=== PATIENT | male | born 2000 | race Asian ===

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

== ENCOUNTER 2019-04-24 14:06 | Emergency (ER) | payer BC ==
[~2019-04-24] VITALS: Ht 167.6 cm; Wt 81.8 kg
[~2019-04-24 14:06] MED LIST changes: +OMEP20 PO
[2019-04-24 14:09] VITALS: BP 147/81
[2019-04-24] MEDS ORDERED: ALBUTEROL SULFATE HFA 90 MCG/PUFF 8 GM INHALER IH ONE (16:06)
== END 2019-04-24 16:43 | disposition home or self-care (01) ==
LOC: EMS 14:08
DX: J45.909 Unspecified asthma, uncomplicated (principal); K21.9 Gastro-esophageal reflux disease without esophagitis
CPT/HCPCS: J3535

== ENCOUNTER 2019-05-20 02:53 | Emergency (ER) | payer BC ==
[~2019-05-20] VITALS: Ht 167.6 cm; Wt 81.8 kg
[~2019-05-20 02:53] MED LIST changes: -OMEP20 PO
[2019-05-20] MEDS ORDERED: LORA10TA7 PO (03:05)
[2019-05-20] MEDS ORDERED: SODIUM CHLORIDE 0.9% 1,000 ML IV ONE (03:15)
[2019-05-20] MEDS ORDERED: ALBUTEROL SULFATE HFA 90 MCG/PUFF 8 GM INHALER IH ONE (03:15)
[2019-05-20] MEDS ORDERED: MethylPREDNISolone SOD SUCC 125 MG/2 ML VIAL IVP ONE (03:15)
[2019-05-20] MEDS ORDERED: MAGNESIUM SULFATE 2 GM/WATER 50 ML IV ONE (03:15)
[2019-05-20 03:41] LABS: BASOPHILS % (AUTO) 0.6 % (0.0-2.0); EOSINOPHILS % (AUTO) 6.5 % (1.0-6.0); HEMATOCRIT 45.8 % (41-53); HEMOGLOBIN 15.8 g/dL (13.5-17.5); LYMPHOCYTES # (AUTO) 2.4 K/uL (1.0-4.8); LYMPHOCYTES % (AUTO) 30.4 % (22.0-44.0); MEAN CORPUSCULAR HEMOGLOBIN 30.5 pg (26.0-34.0); MEAN CORPUSCULAR HGB CONC 34.4 G/dL (31.0-37.0); MEAN CORPUSCULAR VOLUME 89 fL (80-100); MONOCYTES # (AUTO) 1.3 K/uL (0.1-1.0); MONOCYTES % (AUTO) 16.5 % (2.0-9.0); NEUTROPHILS # (AUTO) 3.6 K/uL (1.8-7.7); PLATELET COUNT (AUTO) 257 K/uL (150-450); RED BLOOD CELL COUNT(AUTO) 5.17 MIL/uL (4.50-5.90); RED CELL DISTRIBUTION WIDTH 12.9 % (11.5-14.5)
[2019-05-20 03:51] LABS: ANION GAP 12 mmol/L (8-16); CALCIUM, TOTAL 9.4 mg/dL (8.8-10.5); CARBON DIOXIDE 28 mmol/L (22-29); CHLORIDE 102 mmol/L (98-107); CREATININE 1.03 mg/dL (0.60-1.30); GLOMERULAR FILTR. RATE CALC > 60 mL/min (>60); GLUCOSE,RANDOM 91 mg/dL (70-110); POTASSIUM 3.6 mmol/L (3.5-5.1); SODIUM SERUM 142 mmol/L (136-145); UREA NITROGEN, BLOOD 10 mg/dL (7-18)
[2019-05-20 03:57] LABS: ALANINE AMINOTRANSFERASE 99 U/L (12-78); ALBUMIN 3.9 g/dL (3.4-5.0); ALKALINE PHOSPHATASE 115 U/L (46-116); ASPARTATE AMINOTRANSFERASE 71 U/L (15-37); BILIRUBIN,TOTAL 0.4 mg/dL (0.1-1.0)
[2019-05-20 03:59] LABS: LACTIC ACID 1.1 mmol/L (0.4-2.0)
[2019-05-20 04:05] VITALS: BP 121/65
[2019-05-20 04:32] LABS: INFLUENZA TYPE A NEGATIVE FOR TYPE A (NEGATIVE)
[2019-05-20 04:33] LABS: INFLUENZA TYPE B NEGATIVE FOR TYPE B (NEGATIVE)
[2019-05-20] MEDS ORDERED: GuaiFENesin/D-METHORPHAN [SUGAR-FREE] 200-20MG/10 ML SYRUP UDCUP PO ONE (05:00)
== END 2019-05-20 05:19 | disposition home or self-care (01) ==
LOC: EMS 02:54
DX: J06.9 Acute upper respiratory infection, unspecified (principal); J45.909 Unspecified asthma, uncomplicated; K21.9 Gastro-esophageal reflux disease without esophagitis; Z20.828 Contact with and (suspected) exposure to other viral communicable diseases
CPT/HCPCS: 36415; 71045; 80053; 83605; 85025; 87040; 87635; 87804; 94640; 96365; 96375; 99284; J2930; J3475; J7030; J3535

== ENCOUNTER 2020-05-18 00:07 | Emergency (ER) | payer BC ==
[~2020-05-18] VITALS: Ht 167.6 cm; Wt 90.9 kg
[~2020-05-18 00:07] MED LIST changes: +LORA10TA7 PO
[2020-05-18] MEDS ORDERED: IBUPROFEN 400 MG TABLET PO ONE (01:15)
[2020-05-18 02:30] VITALS: BP 143/96
== END 2020-05-18 02:52 | disposition home or self-care (01) ==
LOC: EMS 00:11
DX: S63.501A Unspecified sprain of right wrist, initial encounter (principal); J45.909 Unspecified asthma, uncomplicated; K21.9 Gastro-esophageal reflux disease without esophagitis; W22.01XA Walked into wall, initial encounter; Y93.89 Activity, other specified; Y92.89 Other specified places as the place of occurrence of the external cause; Y99.8 Other external cause status
CPT/HCPCS: 99284; 73110-TC; 73130-TC; Z7502; Z7610

== ENCOUNTER 2020-07-27 03:37 | Emergency (ER) | payer BC, MEDICAID ==
[~2020-07-27] VITALS: Ht 165.1 cm; Wt 95.0 kg
[2020-07-27] MEDS ORDERED: ALBUTEROL SULFATE HFA 90 MCG/PUFF 8 GM INHALER IH ONE (04:15)
[2020-07-27 04:39] VITALS: BP 148/60
== END 2020-07-27 04:57 | disposition home or self-care (01) ==
LOC: EMS 03:44
DX: R06.02 Shortness of breath (principal); R05 Cough; R09.81 Nasal congestion; J45.909 Unspecified asthma, uncomplicated; K21.9 Gastro-esophageal reflux disease without esophagitis; Z20.822 Contact with and (suspected) exposure to COVID-19
CPT/HCPCS: 94640; 99283; U0003; J3535

== ENCOUNTER 2020-12-22 02:44 | Emergency (ER) | payer BC, OTHER ==
[~2020-12-22] VITALS: Ht 170.2 cm; Wt 95.5 kg
[2020-12-22] MEDS ORDERED: SODIUM CHLORIDE 0.9% 1,000 ML IV ONE (05:00)
[2020-12-22] MEDS ORDERED: ONDANSETRON HCL 4 MG/2 ML VIAL IVP ONE (05:00)
[2020-12-22] MEDS ORDERED: DIPHENOXYLATE/ATROP 2.5-0.025 MG TABLET PO ONE (05:00)
[2020-12-22] MEDS ORDERED: ACETAMINOPHEN 500 MG TABLET PO ONE (05:00)
[2020-12-22 05:08] LABS: BASOPHILS % (AUTO) 0.3 % (0.0-2.0); EOSINOPHILS % (AUTO) 5.7 % (1.0-6.0); HEMOGLOBIN 15.4 g/dL (13.5-17.5); LYMPHOCYTES # (AUTO) 1.9 K/uL (1.0-4.8); LYMPHOCYTES % (AUTO) 15.2 % (22.0-44.0); MEAN CORPUSCULAR HGB CONC 33.5 G/dL (31.0-37.0); MEAN CORPUSCULAR VOLUME 89 fL (80-100); MONOCYTES # (AUTO) 1.4 K/uL (0.1-1.0); MONOCYTES % (AUTO) 11.7 % (2.0-9.0); NEUTROPHILS # (AUTO) 8.3 K/uL (1.8-7.7); NEUTROPHILS % (AUTO) 67.1 % (40.0-70.0); PLATELET COUNT (AUTO) 293 K/uL (150-450); RED BLOOD CELL COUNT(AUTO) 5.14 MIL/uL (4.50-5.90); RED CELL DISTRIBUTION WIDTH 12.8 % (11.5-14.5)
[2020-12-22 05:15] LABS: ANION GAP 12 mmol/L (8-16); CALCIUM, TOTAL 8.9 mg/dL (8.8-10.5); CARBON DIOXIDE 27 mmol/L (22-29); CHLORIDE 104 mmol/L (98-107); CREATININE 0.95 mg/dL (0.60-1.30); GLOMERULAR FILTR. RATE CALC > 60 mL/min (>60); GLUCOSE,RANDOM 99 mg/dL (70-110); POTASSIUM 3.4 mmol/L (3.5-5.1); SODIUM SERUM 143 mmol/L (136-145); UREA NITROGEN, BLOOD 10 mg/dL (7-18)
[2020-12-22 05:22] LABS: ALANINE AMINOTRANSFERASE 84 U/L (12-78); ALKALINE PHOSPHATASE 107 U/L (46-116); ASPARTATE AMINOTRANSFERASE 42 U/L (15-37); BILIRUBIN,TOTAL 0.4 mg/dL (0.1-1.0); LIPASE 75 U/L (73-393); TOTAL PROTEIN, SERUM 8.2 g/dL (6.4-8.2)
[2020-12-22 08:30] VITALS: BP 130/69
== END 2020-12-22 09:07 | disposition home or self-care (01) ==
LOC: EMS 02:46
DX: K52.9 Noninfective gastroenteritis and colitis, unspecified (principal); E87.6 Hypokalemia; R79.89 Other specified abnormal findings of blood chemistry; J40 Bronchitis, not specified as acute or chronic
CPT/HCPCS: 36415; 71045; 74176; 80053; 83690; 85025; 96361; 96374; 99285; J2405; J7030

== ENCOUNTER 2021-04-27 09:59 | Emergency (ER) | payer BC, OTHER ==
[~2021-04-27] VITALS: Ht 170.2 cm; Wt 90.9 kg
[2021-04-27 11:06] VITALS: BP 126/74
[2021-04-27] MEDS ORDERED: POLY17PO PO (11:43)
== END 2021-04-27 11:54 | disposition home or self-care (01) ==
LOC: EMS 10:03
DX: K60.2 Anal fissure, unspecified (principal); K62.5 Hemorrhage of anus and rectum; K59.00 Constipation, unspecified
CPT/HCPCS: 99281; Z7502

== ENCOUNTER 2021-05-08 07:17 | Emergency (ER) | payer BC, OTHER ==
[~2021-05-08] VITALS: Ht 170.2 cm; Wt 91.0 kg
[~2021-05-08 07:17] MED LIST changes: +POLY17PO PO
[2021-05-08 07:43] LABS: COVID AG,FIA SOURCE NASOPHARYNGEAL
[2021-05-08] MEDS ORDERED: IBUPROFEN 400 MG TABLET PO ONE (08:00)
[2021-05-08] MEDS ORDERED: ACETAMINOPHEN 500 MG TABLET PO ONE (08:00)
[2021-05-08 09:00] VITALS: BP 137/85
[2021-05-12 13:58] LABS: CHLAMYDIA DNA NAA,PHARYNGEAL Negative (Negative); N.GONORRHEA DNA NAA,PHARYNGEAL Negative (Negative)
== END 2021-05-08 09:32 | disposition home or self-care (01) ==
LOC: EMS 07:20
DX: J02.0 Streptococcal pharyngitis (principal); J45.909 Unspecified asthma, uncomplicated; E78.00 Pure hypercholesterolemia, unspecified; Z79.899 Other long term (current) drug therapy; Z20.822 Contact with and (suspected) exposure to COVID-19
CPT/HCPCS: 87430; 87491; 87591; 99283

== ENCOUNTER 2021-05-19 09:52 | Emergency (ER) | payer BC, OTHER ==
[~2021-05-19] VITALS: Ht 170.2 cm; Wt 90.9 kg
[2021-05-19 11:58] VITALS: BP 119/73
[2021-05-19] MEDS ORDERED: ALBU8HFA IH (12:02)
== END 2021-05-19 12:29 | disposition home or self-care (01) ==
LOC: EMS 09:52
DX: J45.909 Unspecified asthma, uncomplicated (principal); F41.9 Anxiety disorder, unspecified; E78.00 Pure hypercholesterolemia, unspecified; Z79.899 Other long term (current) drug therapy
CPT/HCPCS: 99281; Z7502

== ENCOUNTER 2021-06-25 14:00 | Emergency (ER) | payer BC, OTHER ==
[~2021-06-25] VITALS: Ht 170.2 cm; Wt 90.9 kg
[2021-06-25 14:09] VITALS: BP 140/83
[2021-06-25 14:35] LABS: COVID AG,FIA SOURCE NASAL SWAB
== END 2021-06-25 15:29 | disposition home or self-care (01) ==
LOC: EMS 14:00
DX: Z20.822 Contact with and (suspected) exposure to COVID-19 (principal); J45.909 Unspecified asthma, uncomplicated
CPT/HCPCS: 87426; 99283; C9803; U0003

== ENCOUNTER 2021-08-15 12:58 | Emergency (ER) | payer BC, OTHER ==
[~2021-08-15] VITALS: Ht 170.2 cm; Wt 90.9 kg
[~2021-08-15 12:58] MED LIST changes: -POLY17PO PO
[2021-08-15 13:07] VITALS: BP 140/81
[2021-08-15 13:52] LABS: COVID AG,FIA SOURCE NASAL SWAB
== END 2021-08-15 14:51 | disposition home or self-care (01) ==
LOC: EMS 13:00
DX: U07.1 COVID-19 (principal); J45.909 Unspecified asthma, uncomplicated; Z79.899 Other long term (current) drug therapy
CPT/HCPCS: 99283

== ENCOUNTER 2021-08-20 09:38 | Emergency (ER) | payer BC, OTHER ==
[~2021-08-20] VITALS: Ht 170.2 cm; Wt 90.9 kg
[~2021-08-20 09:38] MED LIST changes: -LORA10TA7 PO
[2021-08-20 10:50] VITALS: BP 130/71
[2021-08-20 12:07] LABS: COVID AG,FIA SOURCE NASOPHARYNGEAL
[2021-08-20] MEDS ORDERED: IBUP-1554 PO (12:53)
[2021-08-20] MEDS ORDERED: GUAIFDM PO (12:53)
[2021-08-20] MEDS ORDERED: ALBU8.5H8 IH (12:53)
[2021-08-20] MEDS ORDERED: ACET-66 PO (12:53)
== END 2021-08-20 13:03 | disposition home or self-care (01) ==
LOC: EMS 09:38
DX: U07.1 COVID-19 (principal); J45.901 Unspecified asthma with (acute) exacerbation
CPT/HCPCS: 71045; 93005; 99285

== ENCOUNTER 2021-08-26 07:05 | Emergency (ER) | payer BC, OTHER ==
[~2021-08-26 07:05] MED LIST changes: +ACET-66 PO; +ALBU8.5H8 IH; +GUAIFDM PO; +IBUP-1554 PO
[2021-08-27] MEDS ORDERED: ONDA-104 PO (03:31)
== END 2021-08-26 08:53 | disposition left against medical advice (07) ==
LOC: EMS 07:07
DX: Z53.21 Procedure and treatment not carried out due to patient leaving prior to being seen by health care provider (principal)

== ENCOUNTER 2021-08-26 21:09 | Emergency (ER) | payer BC, OTHER ==
[~2021-08-26] VITALS: Ht 170.2 cm; Wt 91.0 kg
[2021-08-27 03:01] VITALS: BP 146/89
[2021-08-27] MEDS ORDERED: PB/HYOSCY/ATR/SCOP/LIDO/MAALOX 55 ML BOTTLE PO ONE (03:30)
[2021-08-27] MEDS ORDERED: ONDA-104 PO (03:31)
== END 2021-08-27 04:02 | disposition home or self-care (01) ==
LOC: EMS 21:44
DX: U07.1 COVID-19 (principal); F41.9 Anxiety disorder, unspecified; R11.2 Nausea with vomiting, unspecified; J45.909 Unspecified asthma, uncomplicated
CPT/HCPCS: 99283

== ENCOUNTER 2022-01-26 12:11 | Emergency (ER) | payer BC, OTHER ==
[~2022-01-26] VITALS: Ht 170.2 cm; Wt 86.4 kg
[~2022-01-26 12:11] MED LIST changes: +ONDA-104 PO
[2022-01-26 12:22] VITALS: BP 134/92
[2022-01-26 12:37] LABS: COVID AG,FIA SOURCE NASOPHARYNGEAL
[2022-01-26 13:07] LABS: INFLUENZA TYPE A NEGATIVE FOR TYPE A (NEGATIVE); INFLUENZA TYPE B NEGATIVE FOR TYPE B (NEGATIVE)
== END 2022-01-26 14:07 | disposition home or self-care (01) ==
LOC: EMS 12:11
DX: L29.9 Pruritus, unspecified (principal); J45.909 Unspecified asthma, uncomplicated; Z20.822 Contact with and (suspected) exposure to COVID-19
CPT/HCPCS: 87804; 99283

== ENCOUNTER 2022-04-25 20:54 | Emergency (ER) | payer BC, OTHER ==
[~2022-04-25] VITALS: Ht 170.2 cm; Wt 90.9 kg
[2022-04-25] MEDS ORDERED: SODIUM CHLORIDE 0.9% 1,000 ML IV ONE (21:15)
[2022-04-25] MEDS ORDERED: PB/HYOSCY/ATR/SCOP/LIDO/MAALOX 55 ML BOTTLE PO ONE (21:15)
[2022-04-25] MEDS ORDERED: PANTOPRAZOLE SODIUM 40 MG/VIAL IVP ONE (21:15)
[2022-04-25] MEDS ORDERED: ONDANSETRON HCL 4 MG/2 ML VIAL IVP ONE (21:15)
[2022-04-25 21:36] LABS: COVID AG,FIA SOURCE NASAL SWAB
[2022-04-25 21:42] LABS: BASOPHILS % (AUTO) 0.9 % (0.0-2.0); EOSINOPHILS % (AUTO) 6.2 % (1.0-6.0); HEMATOCRIT 45.2 % (41-53); LYMPHOCYTES # (AUTO) 2.8 K/uL (1.0-4.8); LYMPHOCYTES % (AUTO) 34.2 % (22.0-44.0); MEAN CORPUSCULAR HEMOGLOBIN 30.2 pg (26.0-34.0); MEAN CORPUSCULAR HGB CONC 33.2 G/dL (31.0-37.0); MEAN CORPUSCULAR VOLUME 91 fL (80-100); MONOCYTES # (AUTO) 0.7 K/uL (0.1-1.0); MONOCYTES % (AUTO) 8.9 % (2.0-9.0); NEUTROPHILS % (AUTO) 49.8 % (40.0-70.0); PLATELET COUNT (AUTO) 275 K/uL (150-450); RED BLOOD CELL COUNT(AUTO) 4.98 MIL/uL (4.50-5.90); RED CELL DISTRIBUTION WIDTH 13.6 % (11.5-14.5)
[2022-04-25 21:46] LABS: ANION GAP 7 mmol/L (8-16); CARBON DIOXIDE 31 mmol/L (22-29); CHLORIDE 102 mmol/L (98-107); CREATININE 1.12 mg/dL (0.60-1.30); GLOMERULAR FILTR. RATE CALC > 60 mL/min (>60); GLUCOSE,RANDOM 103 mg/dL (70-110); POTASSIUM 3.3 mmol/L (3.5-5.1); SODIUM SERUM 140 mmol/L (136-145); UREA NITROGEN, BLOOD 14 mg/dL (7-18)
[2022-04-25 21:52] LABS: ALANINE AMINOTRANSFERASE 32 U/L (12-78); ALBUMIN 4.1 g/dL (3.4-5.0); ALKALINE PHOSPHATASE 62 U/L (46-116); ASPARTATE AMINOTRANSFERASE 23 U/L (15-37); BILIRUBIN,TOTAL 0.8 mg/dL (0.1-1.0); LIPASE 80 U/L (73-393); TOTAL PROTEIN, SERUM 7.5 g/dL (6.4-8.2)
[2022-04-25 21:53] LABS: APPEARANCE,URINE CLEAR (CLEAR); BILIRUBIN,URINE NEGATIVE (NEGATIVE); GLUCOSE, URINE (UA) NEGATIVE (NEGATIVE); KETONES,URINE NEGATIVE (NEGATIVE); LEUKOCYTE ESTERASE ,URINE NEGATIVE (NEGATIVE); NITRATE,URINE NEGATIVE (NEGATIVE); OCCULT BLOOD,URINE NEGATIVE (NEGATIVE); PROTEIN,URINE NEGATIVE (NEGATIVE); SPECIFIC GRAVITIY, URINE 1.015 (1.003-1.030); UROBILINOGEN,URINE <=1.0 mg/dL (<=1.0)
[2022-04-25 22:04] LABS: INFLUENZA TYPE A NEGATIVE FOR TYPE A (NEGATIVE); INFLUENZA TYPE B NEGATIVE FOR TYPE B (NEGATIVE)
[2022-04-25 22:10] VITALS: BP 140/81
[2022-04-25] MEDS ORDERED: PANT-31 PO (22:11)
[2022-04-25] MEDS ORDERED: POTASSIUM CHLORIDE 20 MEQ ER TABLET PO ONE (22:15)
== END 2022-04-25 22:39 | disposition home or self-care (01) ==
LOC: EMS 20:55
DX: R10.13 Epigastric pain (principal); J45.909 Unspecified asthma, uncomplicated; Z20.822 Contact with and (suspected) exposure to COVID-19
CPT/HCPCS: 99284; 96374; 96361; 96375; 87426; 80053; 81003; 83690; 85025; 87804; 36415; J2405; C9113; J7030; 99285

== ENCOUNTER 2022-07-27 17:06 | Emergency (ER) | payer BC, OTHER ==
[~2022-07-27] VITALS: Ht 170.2 cm; Wt 90.9 kg
[~2022-07-27 17:06] MED LIST changes: +ALBU18HF12 IH; -ALBU8HFA IH; -GUAIFDM PO; -ONDA-104 PO; +PANT-31 PO
[2022-07-27 17:20] VITALS: TEMP 98.6
[2022-07-27 17:35] VITALS: BP 113/75; PULSE 82; RESP 18
[2022-07-27] MEDS ORDERED: AMOX250C4 PO (17:59)
== END 2022-07-27 18:09 | disposition home or self-care (01) ==
LOC: EMS 17:07
DX: J02.0 Streptococcal pharyngitis (principal); J45.909 Unspecified asthma, uncomplicated
CPT/HCPCS: 87430; 99283

== ENCOUNTER 2022-09-26 13:53 | Emergency (ER) | payer BC, OTHER ==
[~2022-09-26] VITALS: Ht 170.2 cm; Wt 90.9 kg
[~2022-09-26 13:53] MED LIST changes: -ACET-66 PO; -ALBU18HF12 IH; +AMOX250C4 PO; -IBUP-1554 PO; -PANT-31 PO
[2022-09-26 14:08] VITALS: TEMP 99.6
[2022-09-26 14:46] VITALS: BP 123/70; PULSE 88; RESP 18
[2022-09-26 14:53] LABS: COVID AG,FIA SOURCE NASAL SWAB
[2022-09-26 15:10] LABS: RAPID GROUP A STREP NEGATIVE (NEGATIVE)
[2022-09-26 15:20] LABS: INFLUENZA TYPE A NEGATIVE FOR TYPE A (NEGATIVE); INFLUENZA TYPE B NEGATIVE FOR TYPE B (NEGATIVE)
== END 2022-09-26 16:00 | disposition home or self-care (01) ==
LOC: EMS 13:53
DX: U07.1 COVID-19 (principal); R11.0 Nausea; J45.909 Unspecified asthma, uncomplicated
CPT/HCPCS: 87430; 87804; 99283

== ENCOUNTER 2022-11-20 00:57 | Emergency (ER) | payer BC, OTHER ==
[~2022-11-20] VITALS: Ht 170.2 cm; Wt 77.3 kg
[2022-11-20 01:01] VITALS: TEMP 98
[2022-11-20 01:30] VITALS: BP 120/71; PULSE 104; RESP 16
[2022-11-20 01:35] LABS: BASOPHILS % (AUTO) 0.5 % (0.0-2.0); HEMATOCRIT 43.5 % (41-53); HEMOGLOBIN 14.6 g/dL (13.5-17.5); LYMPHOCYTES % (AUTO) 8.1 % (22.0-44.0); MEAN CORPUSCULAR HEMOGLOBIN 30.4 pg (26.0-34.0); MEAN CORPUSCULAR HGB CONC 33.5 G/dL (31.0-37.0); MEAN CORPUSCULAR VOLUME 91 fL (80-100); NEUTROPHILS # (AUTO) 10.2 K/uL (1.8-7.7); NEUTROPHILS % (AUTO) 81.4 % (40.0-70.0); PLATELET COUNT (AUTO) 290 K/uL (150-450); WHITE BLOOD COUNT (AUTO) 12.5 K/uL (4.5-11.0)
== END 2022-11-20 01:45 | disposition home or self-care (01) ==
LOC: EMS 00:58
DX: K60.2 Anal fissure, unspecified (principal); J45.909 Unspecified asthma, uncomplicated
CPT/HCPCS: 85025; 99283

== ENCOUNTER 2024-12-11 18:31 | Emergency (ER) | payer BC, OTHER ==
[~2024-12-11] VITALS: Ht 170.2 cm; Wt 75.0 kg
[2024-12-11 18:41] VITALS: BP 134/85; PULSE 87; RESP 18; TEMP 98.1; O2SAT 99
[2024-12-11] MEDS ORDERED: IBUP-1492 PO (20:27)
[2024-12-11] MEDS ORDERED: SULF1TAB94 PO (20:27)
[2024-12-11] MEDS ORDERED: CEPH-558 PO (20:27)
[2024-12-11] MEDS: SULFAMETHOX/TRIMETH DS 800-160 MG/TABLET PO ONE (20:34)
[2024-12-11] MEDS: IBUPROFEN 600 MG TABLET PO ONE (20:34)
[2024-12-11] MEDS: CEPHALEXIN MONOHYDRATE 500 MG CAPSULE PO ONE (20:35)
== END 2024-12-11 20:41 | disposition home or self-care (01) ==
LOC: EMS 18:31
DX: S70.362A Insect bite (nonvenomous), left thigh, initial encounter (principal); L03.116 Cellulitis of left lower limb; J45.909 Unspecified asthma, uncomplicated; Z79.899 Other long term (current) drug therapy; W57.XXXA Bitten or stung by nonvenomous insect and other nonvenomous arthropods, initial encounter; Y93.89 Activity, other specified; Y92.89 Other specified places as the place of occurrence of the external cause; Y99.8 Other external cause status
CPT/HCPCS: 99284; Z7502; Z7610